=== PATIENT | male | born 1990 | race Caucasian/White ===

== ENCOUNTER 2021-05-07 15:35 | Inpatient (IN) | payer OTHER ==
[~2021-05-07] VITALS: Ht 182.9 cm; Wt 104.3 kg
[2021-05-07] MEDS ORDERED: IBUPROFEN 600MG TABLET PO ONE (17:30)
[2021-05-07 18:16] LABS: CLARITY URINE CLEAR (CLEAR); COLOR URINE YELLOW (YELLOW); KETONES URINE NEGATIVE (NEGATIVE); LEUKOCYTE ESTERASE URINE NEGATIVE (NEGATIVE); NITRITE URINE NEGATIVE (NEGATIVE); OCCULT BLOOD URINE 1+ (NEGATIVE); PROTEIN URINE NEGATIVE (NEGATIVE); SPECIFIC GRAVITY URINE 1.024 (1.005-1.030); UROBILINOGEN URINE 0.2 E.U./dL (0.2-1.0)
[2021-05-07 18:20] LABS: CHLORIDE 104 mEq/L (98-107)
[2021-05-07 18:29] LABS: BASOPHILS % 0.4 % (0.0-2.0); HEMATOCRIT. 47.8 % (42.0-52.0); HEMOGLOBIN. 16.9 g/dL (14.0-18.0); LYMPHOCYTES % 8.8 % (20.0-50.0); MEAN CORPUSCULAR HEMOGLOBIN 32.3 pg (28.0-32.0); MEAN CORPUSCULAR VOLUME 91.5 fL (80.0-94.0); MEAN PLATELET VOLUME 7.4 fl (7.4-10.4); NEUTROPHILS % 81.8 % (40.0-76.0); PLATELET 350 x1000/uL (130-400); RED BLOOD CELL COUNT 5.22 mill/uL (4.7-6.1); RED CELL DISTRIBUTION WIDTH 12.4 % (11.6-14.6)
[2021-05-07] MEDS ORDERED: IOHEXOL-350 100 ML BOTTLE ONE (21:47)
[2021-05-07] MEDS ORDERED: PIPERACILLIN/TAZ 3.375G PREMIX 50 ML IV ONE (23:00)
[2021-05-08] MEDS ORDERED: DEXT 5%/0.45% NACL 1000ML 1,000 ML IV SCH
[2021-05-08] MEDS ORDERED: PIPERACILLIN/TAZOBACTAM 3.375 G in DEXTROSE 5% WATER 50 ML IV SCH
[2021-05-08] MEDS ORDERED: ACETAMINOPHEN 650MG SUPP PR PRN
[2021-05-08 05:41] LABS: BASOPHILS % 0.2 % (0.0-2.0); EOSINOPHILS % 0.2 % (0.0-5.0); HEMATOCRIT. 41.8 % (42.0-52.0); HEMOGLOBIN. 14.9 g/dL (14.0-18.0); LYMPHOCYTES % 10.7 % (20.0-50.0); MEAN CORPUSCULAR HEMOGLOBIN 31.9 pg (28.0-32.0); MEAN CORPUSCULAR VOLUME 89.4 fL (80.0-94.0); NEUTROPHILS % 77.9 % (40.0-76.0); PLATELET 298 x1000/uL (130-400); RED BLOOD CELL COUNT 4.68 mill/uL (4.7-6.1); RED CELL DISTRIBUTION WIDTH 12.8 % (11.6-14.6)
[2021-05-08 05:47] LABS: CHLORIDE 106 mEq/L (98-107)
[2021-05-08] MEDS: PIPERACILLIN/TAZOBACTAM 3.375G in DEXT 5% WATER 50ML IV SCH ×3 (06:28→21:49)
[2021-05-08] MEDS ORDERED: ONDANSETRON HCL 4MG/2ML INJ IV PRN ×4 (09:15→10:30)
[2021-05-08] MEDS ORDERED: MORPHINE SULFATE 2 MG/ML CPJ (NOT FOR IM USE) IV PRN (09:15)
[2021-05-08] MEDS ORDERED: MORPHINE SULFATE 4 MG/ML CPJ (NOT FOR IM USE) IV PRN (09:15)
[2021-05-08] MEDS ORDERED: HYDROCODONE/ACETAMINOPHEN 5/325MG TABLET PO PRN (09:15)
[2021-05-08] MEDS ORDERED: BUPIVACAINE HCL/PF 0.5% (5MG/ML) 10ML ONE (09:25)
[2021-05-08] MEDS ORDERED: SKIN ADHESIVE 0.7 GM EA TOP ONE (09:25)
[2021-05-08] MEDS ORDERED: NALOXONE HCL 0.4MG/ML VIAL IV PRN (09:30)
[2021-05-08] MEDS ORDERED: MIDAZOLAM HCL 2 MG/2 ML VIAL ONE (09:35)
[2021-05-08] MEDS ORDERED: ROCURONIUM BROMIDE 10MG/ML VIAL 5ML IV ONE (09:35)
[2021-05-08] MEDS ORDERED: NEOSTIGMINE METHYLSULFATE 1MG/ML 10 ML VIAL ONE (09:35)
[2021-05-08] MEDS ORDERED: PROPOFOL 200MG/20ML VIAL IV ONE (09:35)
[2021-05-08] MEDS ORDERED: GLYCOPYRROLATE 0.2 MG/ML 2ML VIAL ONE (09:35)
[2021-05-08] MEDS ORDERED: FENTANYL CITRATE/PF 50MCG/ML 2ML VIAL ONE (09:35)
[2021-05-08] MEDS ORDERED: DEXAMETHASONE 4MG/ML 1ML VIAL ONE (09:59)
[2021-05-08] MEDS ORDERED: ONDANSETRON HCL 4MG/2ML INJ ONE (09:59)
[2021-05-08] MEDS ORDERED: HYDROMORPHONE HCL/PF 2MG/ML CPJ IV PRN ×3 (10:00→10:30)
[2021-05-08] MEDS ORDERED: LABETALOL 5MG/ML SYR 20 MG/4 ML SYRINGE IV PRN ×2 (10:00→10:30)
[2021-05-08] MEDS ORDERED: MEPERIDINE HCL/PF 25MG/ML CPJ IV PRN ×2 (10:00→10:30)
[2021-05-08 15:08] VITALS: BP 120/66
[2021-05-08 16:00] VITALS: BP 115/66
[2021-05-08] MEDS: HYDROCODONE/ACETAMINOPHEN 5/325MG TABLET PO PRN (17:08)
[2021-05-08 20:00] VITALS: BP 128/75
[2021-05-08] MEDS: DEXT 5%/0.45% NACL KCL 20MEQ/L 1,000 ML IV SCH (21:50)
[2021-05-09] VITALS: BP 112/66
[2021-05-09 04:00] VITALS: BP 111/59
[2021-05-09] MEDS: PIPERACILLIN/TAZOBACTAM 3.375G in DEXT 5% WATER 50ML IV SCH (05:10)
[2021-05-09] MEDS: DEXT 5%/0.45% NACL KCL 20MEQ/L 1,000 ML IV SCH (07:36)
[2021-05-09 08:00] VITALS: BP 113/55
[2021-05-09] MEDS: HYDROCODONE/ACETAMINOPHEN 5/325MG TABLET PO PRN (08:35)
[2021-05-09 12:00] VITALS: BP 107/60
[2021-05-09] MEDS ORDERED: MORPHINE SULFATE 2 MG/ML CPJ (NOT FOR IM USE) IV PRN (14:48)
[2021-05-09 14:53] VITALS: BP 107/60
== END 2021-05-09 14:25 | disposition home or self-care (01) | DRG 419 ==
LOC: ER 15:35 → MICUSO 23:52 → EDBEDREQ 23:54 → EDBEDREQTM 23:54 → 6EST 05-08 14:26
PROVIDERS: ADMIT Hospitalist; ATTEND Hospitalist
PROC: 0FT44ZZ Resection of Gallbladder, Percutaneous Endoscopic Approach (ICD-10-PCS; principal; 2021-05-08)
DX: K80.00 Calculus of gallbladder with acute cholecystitis without obstruction (principal); D18.03 Hemangioma of intra-abdominal structures; Z20.822 Contact with and (suspected) exposure to COVID-19; Z82.49 Family history of ischemic heart disease and other diseases of the circulatory system
CPT/HCPCS: 36415; 71101; 71275; 73706; 74176; 74177; 76705; 80053; 81003; 84484; 85025; 85379; 87426; 88304; 93005; 99291; J1100; J1170; J2175; J2250; J2270; J2405; J2543; J2704; J2710; J3010; J3490; J7060; Q9967